=== PATIENT | female | born 1935 | race Caucasian/White ===

== ENCOUNTER 2017-10-01 18:15 | Emergency (ER) | payer OTHER, MEDICARE ==
[~2017-10-01] VITALS: Ht 152.4 cm; Wt 73.5 kg
[2017-10-01 18:25] VITALS: BP_SYST 167
--- NOTE | 2017-10-01 18:25 | NUR ---
Patient walked in, grossly bloody and was triaged at bedside. Patient fell down last step in a case of stairs. Left upper arm with deformity, pt feel that she does not have control of arm. Pt has gross deformity of nose, sweling bleeding from nares. Pt denies KO. Patient to ER bed 3 to gown for evaluation. Side rails up. Report given to Acacia HUANG.
--- NOTE | 2017-10-01 18:26 | NUR ---
Pt was brought in my friends, complains of pain to left shoulder s/p fall. Per patient, she was walking down the steps in front of friend's house when she missed the last step and fell. Pt states she used her left hand to brace the fall. Pt is unable to move left shoulder but is able to wiggle fingers and rotate wrist. Pt states no pain to shoulder when no movement, but when laying down, pain increases. Noted minor abrasions to bridge of nose and left eyebrow. Noted blood on patient's clothes. Pt denies losing consciousness, N/V, or dizziness. Pt is AAO x 4 and ambulatory. No other injuries/complaints per patient or noted.
--- NOTE | 2017-10-01 18:33 | NUR ---
ER Dr. Avalos at bedside examining patient.
--- NOTE | 2017-10-01 19:02 | NUR ---
Pt went to radiology in stable condition.
--- NOTE | 2017-10-01 19:19 | NUR ---
Pt returned from radiology in stable condition.
--- NOTE | 2017-10-01 19:21 | NUR ---
Gave report to REINA Lovell. All care endorsed.
[2017-10-01] MEDS: IBUPROFEN 600 MG TABLET PO ONE (19:29)
--- NOTE | 2017-10-01 19:45 | NUR ---
No adverse reactions noted after medication administration. Will continue to monitor.
[2017-10-01 19:56] VITALS: BP_SYST 143
--- NOTE | 2017-10-01 19:56 | NUR ---
Patient given written and verbal discharge instructions and verbalizes understanding. ER MD discussed with patient the results and treatment provided. Patient in stable condition. ID arm band removed. Rx of [place] given. Patient educated on pain management and to follow up with PMD. Pain Scale 0/10. Opportunity for questions provided and answered.
== END 2017-10-01 19:56 | disposition home or self-care (01) ==
LOC: SED 18:15
DX: S42.292A Other displaced fracture of upper end of left humerus, initial encounter for closed fracture (principal); S00.31XA Abrasion of nose, initial encounter; Z88.0 Allergy status to penicillin; Z88.8 Allergy status to other drugs, medicaments and biological substances; W10.9XXA Fall (on) (from) unspecified stairs and steps, initial encounter; Y93.01 Activity, walking, marching and hiking; Y92.89 Other specified places as the place of occurrence of the external cause; Y99.8 Other external cause status
CPT/HCPCS: 70160-TC; 73060-TC; 99284